=== PATIENT | female | born 1990 | race Caucasian/White ===

== ENCOUNTER 2017-11-22 15:50 | Emergency (ER) | payer OTHER ==
[~2017-11-22] VITALS: Ht 167.6 cm; Wt 68.0 kg
--- NOTE | 2017-11-22 16:00 | NUR ---
[id number]/[employer] CHEST PAIN S/P GOT ARRESTED FOR METH POSSESSION. [employer] AT BS. DENIES OTHER SYMPTOMS. 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 SAFETY AND COMFORT MEASURES PROVIDED. WILL MONITOR.
--- NOTE | 2017-11-22 17:04 | NUR ---
Patient discharged to home in stable condition. Written and verbal after care instructions given. Patient verbalizes understanding of instruction.
[2017-11-22 17:05] VITALS: BP 120/88
== END 2017-11-22 17:06 ==
LOC: ER 15:51
DX: Z02.89 Encounter for other administrative examinations (principal); S80.01XA Contusion of right knee, initial encounter; B37.0 Candidal stomatitis; F19.10 Other psychoactive substance abuse, uncomplicated; Z86.19 Personal history of other infectious and parasitic diseases; Z72.0 Tobacco use; V89.2XXA Person injured in unspecified motor-vehicle accident, traffic, initial encounter; Y93.89 Activity, other specified; Y92.413 State road as the place of occurrence of the external cause; Y99.8 Other external cause status
CPT/HCPCS: 73564-TC; 82962-TC; A4606; Z7610